=== PATIENT | female | born 1990 | race Two or more races ===

== ENCOUNTER 2021-09-29 16:08 | Emergency (ER) | payer MEDICAID ==
[~2021-09-29] VITALS: Ht 170.2 cm; Wt 120.2 kg
[2021-09-29 16:42] VITALS: BP 108/50
== END 2021-09-29 17:37 | disposition home or self-care (01) ==
LOC: ER 16:08
DX: J01.90 Acute sinusitis, unspecified (principal); J45.909 Unspecified asthma, uncomplicated